=== PATIENT | female | born 2000 | race Two or more races ===

== ENCOUNTER 2023-09-08 15:05 | Emergency (ER) | payer MEDICAID, OTHER ==
[~2023-09-08] VITALS: Ht 160 cm; Wt 69.5 kg
[2023-09-08 16:14] VITALS: BP 119/82; PULSE 102; RESP 18; TEMP 98.6; O2SAT 98
== END 2023-09-08 16:20 | disposition home or self-care (01) ==
LOC: ER 15:05
DX: R68.84 Jaw pain (principal)